=== PATIENT | female | born 1975 | race Two or more races ===

== ENCOUNTER 2024-10-09 14:42 | Outpatient (AMB) | payer MEDICAID, SELFPAY ==
[2024-10-09 15:30] VITALS: BP 154/96; PULSE 87; RESP 18; TEMP 36.3; O2SAT 98; BMI 39.7
--- NOTE | 2024-10-09 15:30 | PD.ORTHCLVIS ---
Vital signs 10/09/24 15:30 Height 1.57 m Height Method Stated Weight 98.061 kg Weight Measurement Method Standing Scale BMI 39.7 BP 154/96 H Blood Pressure Source Automatic Cuff Blood Pressure Location Left Upper Arm Position Sitting Respiration 18 Pulse 87 Pulse Source Monitor Temp 97.3 F Temp Source Temporal Artery Scan Pulse Oximetry (%) 98 Oxygen Delivery Method Room Air Med/Allergies Allergies & Medications Allergies No Known Drug Allergies Allergy (Verified 10/09/24 15:31) Medication Reconciliation ibuprofen 800 mg tablet 800 mg PO Q8H 01/21/24 [History Confirmed 10/09/24] acetaminophen 500 mg tablet (Acetaminophen Extra Strength) 1,000 mg (2 x 500 mg) PO Q6H PRN pain #90 tabs 04/01/24 [Rx Confirmed 10/09/24] aspirin 81 mg tablet,delayed release 81 mg PO BID #60 tabs 04/01/24 [Rx Confirmed 10/09/24] doxycycline hyclate 100 mg tablet 100 mg PO BID #14 tabs 04/01/24 [Rx Confirmed 10/09/24] meloxicam 7.5 mg tablet 7.5 mg PO QDAY #30 tabs 04/01/24 [Rx Confirmed 10/09/24] oxycodone 5 mg tablet 5 mg PO Q6H PRN pain #28 tabs 04/01/24 [Rx Confirmed 10/09/24] pregabalin 75 mg capsule 75 mg PO BID #45 caps 04/01/24 [Rx Confirmed 10/09/24] sennosides 8.6 mg-docusate sodium 50 mg tablet (Senna-S) 1 tab-cap PO QDAY #30 tabs 04/01/24 [Rx Confirmed 10/09/24] meloxicam 7.5 mg tablet 7.5 mg PO QDAY #45 tabs 05/05/24 [Rx Confirmed 10/09/24] sulfamethoxazole 800 mg-trimethoprim 160 mg tablet (Bactrim DS) 1 tab PO BID #14 tabs 05/07/24 [Rx Confirmed 10/09/24] Exam Exam Patient is in no acute distress and is cooperative with the examination today. Breathing is nonlabored. Patient has a normal mood and affect. Bilateral extremities were evaluated and demonstrates sensation intact to light touch. Palpable pedal pulses are present. No significant edema is present. Bilateral hips were examined. The patient has no pain with log roll of the hips. Internal rotation to 30 degrees and external rotation to 30 degrees is painless. Negative FADIR. Left knee was examined today. The left knee is in reasonable alignment. Range of motion from 0-120 degrees. Knee is stable to varus and valgus as well as AP translation with <5mm. Patient has a negative McMurrays. There is no pain with patellofemoral compression and no crepitus noted. The knee is Tender to palpation a new R knee incision is clean, dry, and intact. ROM 0-110 degrees Assessment and Plan Problem List (1) Pain: (2) Arthritis of knee, right: Status: Acute Plan: Patient is doing well s/p R TKA. She is doing well. She has left knee arthritis and would like an injection today. Recommend knee cortisone injection as patient would like to proceed with conservative treatment at this time. The risks and benefits of the procedure were reviewed with the patient and patient gave verbal consent to continue with the procedure. Procedure: performed by Dr. Lea Using sterile technique the left knee was thoroughly prepped with alcohol, and approximately 1 cc of Kenalog 40 mg/mL and 4 cc of 1% lidocaine was injected without resistance into the medial tibial femoral joint space. The patient tolerated the procedure. (3) Arthritis of left knee: Status: Acute Office Procedures GNS Level of Care Nursing/Assessment Patient Status: Established Patient Nursing Assessment/Reassesment: Medication Reconciliation, Update PMH in EMR and Vital Signs Coordination of Care: Complex Care and Chronic Disease 1-5, Education Complex Pt/Fam, Consent,records obtained, informed consent, Results/Orders obtained and Staff clarify orders Established Patient Charge Established Patient Point Assignment: 95 Established Patient Point Charge: EP Level 3 (80-115) Surgical Proc/IM SQ injection Major Surgical Procedure: Yes (KNEE INJECTION) Medication Given Medication Given Medication Given: Yes Documented Dose Given: 4 Route: Infiitration Medication Given Medication Given Medication Given: Yes Documented Dose Given: 1 Route: Infiitration Office Meds Xylocaine 10 mg/mL (1 %) injection solution Performing Provider: Ralf Lea MD Performing Location: [facility] Administered by: Ralf Lea MD on 10/09/24 16:09 Dose Route Admin Location Dispensed Lot Number Expiration Date [facility] Rotating Equipment Engineer 20 mL Infiltration 20 mL [id number] [facility]one acetonide 40 mg/mL suspension for injection Performing Provider: Ralf Lea MD Performing Location: [facility] Administered by: Ralf Lea MD on 10/09/24 16:09 Dose Route Admin Location Dispensed Lot Number Expiration Date [employer] 40 mg intra-articular KNEE INJECTION 1 mL [id number] 01/21/26 2996-7082-65 [employer] Questionairres Past Medical History Past Medical History Have you ever been diagnosed with any of the following: Neurological Problems Seizures: No Cardiology Problems Congestive Heart Failure: No Hypertension: Yes (was prescrived amlodipine but stated makes her sick, not taking it) Respiratory Problems Chronic Obstructive Pulmonary Disease (COPD): No Pneumonia: Yes Smoking: Yes (CANNABIS) Smoking Cessation Counseling: No Smoking Exposure: Yes Tobacco Use: No Stomache/Intestinal Problems Obesity: Yes Genital/Urinary Problems Renal Disease: No Reproductive Problems Previous Pregnancies: Yes (3) Musculoskeletal Problems Rheumatoid Arthritis: Yes (states was diagnosed but no meds) Endocrine Problems Diabetes Mellitus Type 1: No Diabetes Mellitus Type 2: No Other Problems Hospitalization: Yes (surgery) Shingles: No Blood Transfusions: No Blood Transfusion Reaction: No Anesthesia Reactions: No Cancer: No Surgical History Total Knee Replacement: Yes Subjective Immunization / Flu Flu Vaccine in the Last 12 Months: Yes Flu Vaccine Exclusion Criteria: Already Received History of Present Illness Chief complaint: Right total knee replacement Patient is doing well status post right total knee replacement. The left knee hurts more. Pain is medial. She has not had an injection for a while. She like to try injection on the left. The pain is starting to affect her quality life and happiness Review of Systems Review of Systems: All systems negative unless otherwise noted in HPI.
--- NOTE | 2024-10-09 15:30 | PD.ORTHCLVIS ---
Vital signs 10/09/24 15:30 Height 1.57 m Height Method Stated Weight 98.061 kg Weight Measurement Method Standing Scale BMI 39.7 BP 154/96 H Blood Pressure Source Automatic Cuff Blood Pressure Location Left Upper Arm Position Sitting Respiration 18 Pulse 87 Pulse Source Monitor Temp 97.3 F Temp Source Temporal Artery Scan Pulse Oximetry (%) 98 Oxygen Delivery Method Room Air Med/Allergies Allergies & Medications Allergies No Known Drug Allergies Allergy (Verified 10/09/24 15:31) Medication Reconciliation ibuprofen 800 mg tablet 800 mg PO Q8H 01/21/24 [History Confirmed 10/09/24] acetaminophen 500 mg tablet (Acetaminophen Extra Strength) 1,000 mg (2 x 500 mg) PO Q6H PRN pain #90 tabs 04/01/24 [Rx Confirmed 10/09/24] aspirin 81 mg tablet,delayed release 81 mg PO BID #60 tabs 04/01/24 [Rx Confirmed 10/09/24] doxycycline hyclate 100 mg tablet 100 mg PO BID #14 tabs 04/01/24 [Rx Confirmed 10/09/24] meloxicam 7.5 mg tablet 7.5 mg PO QDAY #30 tabs 04/01/24 [Rx Confirmed 10/09/24] oxycodone 5 mg tablet 5 mg PO Q6H PRN pain #28 tabs 04/01/24 [Rx Confirmed 10/09/24] pregabalin 75 mg capsule 75 mg PO BID #45 caps 04/01/24 [Rx Confirmed 10/09/24] sennosides 8.6 mg-docusate sodium 50 mg tablet (Senna-S) 1 tab-cap PO QDAY #30 tabs 04/01/24 [Rx Confirmed 10/09/24] meloxicam 7.5 mg tablet 7.5 mg PO QDAY #45 tabs 05/05/24 [Rx Confirmed 10/09/24] sulfamethoxazole 800 mg-trimethoprim 160 mg tablet (Bactrim DS) 1 tab PO BID #14 tabs 05/07/24 [Rx Confirmed 10/09/24] Exam Exam Patient is in no acute distress and is cooperative with the examination today. Breathing is nonlabored. Patient has a normal mood and affect. Bilateral extremities were evaluated and demonstrates sensation intact to light touch. Palpable pedal pulses are present. No significant edema is present. Bilateral hips were examined. The patient has no pain with log roll of the hips. Internal rotation to 30 degrees and external rotation to 30 degrees is painless. Negative FADIR. Left knee was examined today. The left knee is in reasonable alignment. Range of motion from 0-120 degrees. Knee is stable to varus and valgus as well as AP translation with <5mm. Patient has a negative McMurrays. There is no pain with patellofemoral compression and no crepitus noted. The knee is Tender to palpation a new R knee incision is clean, dry, and intact. ROM 0-110 degrees Assessment and Plan Problem List (1) Pain: (2) Arthritis of knee, right: Status: Acute Plan: Patient is doing well s/p R TKA. She is doing well. She has left knee arthritis and would like an injection today. Recommend knee cortisone injection as patient would like to proceed with conservative treatment at this time. The risks and benefits of the procedure were reviewed with the patient and patient gave verbal consent to continue with the procedure. Procedure: performed by Dr. Lea Using sterile technique the left knee was thoroughly prepped with alcohol, and approximately 1 cc of Kenalog 40 mg/mL and 4 cc of 1% lidocaine was injected without resistance into the medial tibial femoral joint space. The patient tolerated the procedure. (3) Arthritis of left knee: Status: Acute Office Procedures GNS Level of Care Nursing/Assessment Patient Status: Established Patient Nursing Assessment/Reassesment: Medication Reconciliation, Update PMH in EMR and Vital Signs Coordination of Care: Complex Care and Chronic Disease 1-5, Education Complex Pt/Fam, Consent,records obtained, informed consent, Results/Orders obtained and Staff clarify orders Established Patient Charge Established Patient Point Assignment: 95 Established Patient Point Charge: EP Level 3 (80-115) Surgical Proc/IM SQ injection Major Surgical Procedure: Yes (KNEE INJECTION) Medication Given Medication Given Medication Given: Yes Documented Dose Given: 4 Route: Infiitration Medication Given Medication Given Medication Given: Yes Documented Dose Given: 1 Route: Infiitration Office Meds Xylocaine 10 mg/mL (1 %) injection solution Performing Provider: Ralf Lea MD Performing Location: [facility] Administered by: Ralf Lea MD on 10/09/24 16:09 Dose Route Admin Location Dispensed Lot Number Expiration Date [facility] Search Strategist 20 mL Infiltration 20 mL [id number] [facility] tri[facility]cin[facility]one acetonide 40 mg/mL suspension for injection Performing Provider: Ralf Lea MD Performing Location: [facility] Administered by: Ralf Lea MD on 10/09/24 16:09 Dose Route Admin Location Dispensed Lot Number Expiration Date [facility] Search Strategist 40 mg intra-articular KNEE INJECTION 1 mL [id number] 01/21/26 7885-8199-53 TEV[employer] PARENTERAL MA Intake Visit Data Collection New Patient or Established: Established Patient (seen at [facility] within 3 years) Seen by Clinical Staff ONLY (RN/MA): No Director Report Required: No PCP or OBGYN visit in last 3 months: Yes Hx Now: No Do You Feel Safe at Home: Yes Authorities Contacted: N/A Questionairres Past Medical History Past Medical History Have you ever been diagnosed with any of the following: Neurological Problems Seizures: No Cardiology Problems Congestive Heart Failure: No Hypertension: Yes (was prescrived amlodipine but stated makes her sick, not taking it) Respiratory Problems Chronic Obstructive Pulmonary Disease (COPD): No Pneumonia: Yes Smoking: Yes (CANNABIS) Smoking Cessation Counseling: No Smoking Exposure: Yes Tobacco Use: No Stomache/Intestinal Problems Obesity: Yes Genital/Urinary Problems Renal Disease: No Reproductive Problems Previous Pregnancies: Yes (3) Musculoskeletal Problems Rheumatoid Arthritis: Yes (states was diagnosed but no meds) Endocrine Problems Diabetes Mellitus Type 1: No Diabetes Mellitus Type 2: No Other Problems Hospitalization: Yes (surgery) Shingles: No Blood Transfusions: No Blood Transfusion Reaction: No Anesthesia Reactions: No Cancer: No Surgical History Total Knee Replacement: Yes Subjective Visit Visit for: follow up visit and injections Immunization / Flu Flu Vaccine in the Last 12 Months: No Flu Vaccine Exclusion Criteria: No Exclusion Criteria History of Present Illness Chief complaint: Right total knee replacement Patient is doing well status post right total knee replacement. The left knee hurts more. The Pain is medial. She has not had an injection for a while. She like to try injection on the left. The pain is starting to affect her quality life and happiness Pain Pain level (0-10): 4 Pain duration: COMES AND GOES Pain location: inside (medial) Pain quality: sharp and aching Pain timing: increases with activity Associated signs & symptoms: stiffness Ambulatory data Ambulatory device: none Treatments Improvement with previous injections: No Improvement with PT: No Improvement with NSAIDS: no Review of Systems Review of Systems: All systems negative unless otherwise noted in HPI.
== END 2024-10-09 15:49 | disposition home or self-care (01) ==
LOC: HODSRG 14:42
PROVIDERS: PCP Family Medicine; Referring Provider Family Medicine; Supervising Provider Orthopaedic Surgery Adult Reconstructive Orthopaedic Surgery; Visit Provider Orthopaedic Surgery Adult Reconstructive Orthopaedic Surgery
DX: M17.0 Bilateral primary osteoarthritis of knee (principal); Z96.651 Presence of right artificial knee joint; R52 Pain, unspecified; I10 Essential (primary) hypertension
CPT/HCPCS: 20610; 99213; J3301; J3490; G0463

== ENCOUNTER 2024-10-23 22:56 | Emergency (ER) | payer MEDICAID, SELFPAY ==
[2024-10-23 22:57] VITALS: BMI 38.4
[2024-10-23 23:07] VITALS: BP 160/92; PULSE 96; RESP 20; TEMP 37; O2SAT 96
--- NOTE | 2024-10-23 23:28 | XR_ITS ---
Examination: PA chest single view, Upright PA chest single view Exam date and time: October 23, 2024 at 11:50 PM INDICATIONS: Coughing beginning one month ago. FINDINGS: Normal heart size. Lungs are clear. The osseous structures are intact IMPRESSION: No active disease
[2024-10-23] MEDS: DEXAMETHASONE SOD PHOS INJ 10 MG/ML VIAL PO (23:38)
[2024-10-23] MEDS: HYDROcodone/APAP 5/325 TABLET 1 TAB PO (23:38)
--- NOTE | 2024-10-23 23:40 | PD.EDURI ---
Upper Respiratory Inf. RME/HPI General Chief Complaint: Flu Like Symptoms Stated Complaint: FLU LIKE SYMPTOMS [id number] Time Seen by Provider: 10/23/24 23:28 Arrival date/time: 10/23/24 22:56 49F with no significant PMH presents to ED with 1 month of nasal congestion, cough, and sinus pressure. Limitations: no limitations Related Data Home Medications ?Medication ?Instructions ?Recorded ?Confirmed ibuprofen 800 mg tablet 800 mg PO Q8H 01/21/24 10/09/24 Previous Rx's ?Medication ?Instructions ?Recorded acetaminophen 500 mg tablet 1,000 mg (2 x 500 mg) PO Q6H PRN 04/01/24 (Acetaminophen Extra Strength) pain #90 tabs aspirin 81 mg tablet,delayed 81 mg PO BID #60 tabs 04/01/24 release doxycycline hyclate 100 mg tablet 100 mg PO BID #14 tabs 04/01/24 meloxicam 7.5 mg tablet 7.5 mg PO QDAY #30 tabs 04/01/24 oxycodone 5 mg tablet 5 mg PO Q6H PRN pain #28 tabs 04/01/24 pregabalin 75 mg capsule 75 mg PO BID #45 caps 04/01/24 sennosides 8.6 mg-docusate sodium 1 tab-cap PO QDAY #30 tabs 04/01/24 50 mg tablet (Senna-S) meloxicam 7.5 mg tablet 7.5 mg PO QDAY #45 tabs 05/05/24 sulfamethoxazole 800 1 tab PO BID #14 tabs 05/07/24 mg-trimethoprim 160 mg tablet (Bactrim DS) amoxicillin 875 mg-potassium 1 tab PO BID 7 days #14 tabs 10/23/24 clavulanate 125 mg tablet prednisone 20 mg tablet 20 mg PO BID 4 days #8 tabs 10/23/24 Allergies Allergy/AdvReac Type Severity Reaction Status Date / Time No Known Drug Allergies Allergy Verified 10/09/24 15:31 Review of Systems Review of Systems Systems Reviewed: All systems reviewed, normal except as documented Constitutional Constitutional: Reports system reviewed and no additional complaints, except as documented, Denies fever(s) and Denies headache(s) ENT Ears, Nose, Mouth, and Throat: Reports as per HPI, Denies disequilibrium, Denies headache(s), Reports nasal congestion and Reports sinus pressure Cardiovascular Cardiovascular: Reports system reviewed and no additional complaints, except as documented, Denies chest pain and Denies dyspnea Respiratory Respiratory: Reports system reviewed and no additional complaints, except as documented, Reports as per HPI, Reports cough and Denies dyspnea Gastrointestinal Gastrointestinal: Reports system reviewed and no additional complaints, except as documented, Denies abdominal pain, Denies nausea and Denies vomiting Neurologic Neurologic: Reports system reviewed and no additional complaints, except as documented, Denies confusion, Denies disequilibrium and Denies headache(s) Psychiatric Psychiatric: Denies confusion Past Medical History Past Medical History NEUROLOGIC: Negative Neurological Disorders or Seizures CARDIAC: Positive Cardiac Disorders and Hypertension (was prescrived amlodipine but stated makes her sick, not taking it); Negative Congestive Heart Failure RESPIRATORY: Positive Pneumonia, Smoking (CANNABIS) and Smoking Exposure; Negative Chronic Obstructive Pulmonary Disease (COPD), Smoking Cessation Counseling or Tobacco Use GASTROINTESTINAL: Positive Gastrointestinal Disorders and Obesity GENITOURINARY: Positive Genitourinary Disorders (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); Negative Renal Disease REPRODUCTIVE: Positive Previous Pregnancies (3) MUSCULOSKELETAL: Positive Musculoskeletal Disorders and Rheumatoid Arthritis (states was diagnosed but no meds) ENDOCRINE: Negative Endocrine Disorders, Diabetes Mellitus Type 1 or Diabetes Mellitus Type 2 HEMATOLOGIC: Negative Blood Disorders OTHER HISTORY: Positive Hospitalization (surgery); Negative Autoimmune Disease, Shingles, Blood Transfusions, Blood Transfusion Reaction, Anesthesia Reactions or Cancer Family History FAMILY HISTORY: Negative Family Psychiatric Problems, Family Respiratory Disorders, Family Cardiac Disorders, Family Gastrointestinal Problems, Family Cancer, Family Surgery or Family Anesthesia Reaction Surgical History SURGICAL: Positive Tubal Ligation Social History SMOKING STATUS: Current every day smoker ED Exam General Limitations: Present no limitations General appearance: Present alert and in no apparent distress Head Head exam: Present atraumatic Eye Eye exam: Present normal appearance, PERRL and EOMI ENT ENT exam: Present mucous membranes moist Expanded ENT Exam Nose exam: Present sinus tenderness Neck Neck exam: Present normal inspection, full ROM and trachea midline Chest Chest inspection: Present normal inspection and symmetric chest wall rise Respiratory Respiratory exam: Present normal lung sounds bilaterally Cardiovascular Cardiovascular exam: Present regular rate, normal rhythm and normal heart sounds Abdominal Exam Abdominal exam: Present soft and normal bowel sounds Extremities Exam Extremities exam: Present normal inspection and full ROM Back Exam Back exam: Present normal inspection and full ROM Neurological Exam Neurological exam: Present alert, oriented X3 and CN II-XII intact Psychiatric Psychiatric exam: Present normal affect and normal mood Skin Skin exam: Present warm, dry, intact and normal color Course Quality Measures none Orders Category Date Time Status XR chest 1V portable Stat Exams 10/23/24 23:28 Completed Amoxicillin/Pot Clav 875 [Augmentin 875] Med 10/23/24 23:57 Discontinued 1 tab PO X1 ONE Dexamethasone Inj [Decadron Inj] Med 10/23/24 23:28 Discontinued 10 mg PO X1 ONE HYDROcodone*/APAP 5/325 [Corinth 5/325] Med 10/23/24 23:28 Discontinued 1 tab PO X1 ONE Vital Signs Vital signs: Vital Signs Temperature 98.6 F 10/23/24 23:07 Pulse Rate 96 10/23/24 23:07 Respiratory Rate 20 10/23/24 23:07 Blood Pressure 160/92 H 10/23/24 23:07 Pulse Oximetry (%) 96 10/23/24 23:07 Oxygen Delivery Method Room Air 10/23/24 23:07 O2 at 96% on RA and WNLs Upper Respiratory Infection MDM Narrative MDM Narrative:: 49F with no significant PMH presents to ED with 1 month of nasal congestion, cough, and sinus pressure. Physical exam reveals sinus tenderness and nasal congestion, but clear lungs. Patient is afebrile, calm, and alert. CXR normal. Likely sinusitis. Patient data External records reviewed:: [facility] previous records Clinical information provided by:: patient Social determinants that could affect healthcare access:: none Patient has the following chronic illnesses:: none How is presenting disease/condition affected by chronic disease/condition?: no chronic disease Evaluation data The following diagnostics were reviewed and interpreted by me:: radiology exam(s) Lab and/or radiology exams considered but not ordered:: ordered Interpretation Summary: above Medications / Prescriptions Medications or Prescriptions considered but not ordered:: ordered Medication administrations:: Medication Administration History Discontinued Medications Hydrocodone Bitart/Acetaminophen (Hydrocodone/Apap 5/325 Tablet) 1 tab PO X1 ONE Stop: 10/23/24 23:29 Last Admin: 10/23/24 23:38 Dose: 1 tab Documented By: OA Amoxicillin/Clavulanate Potassium (Amoxicillin/Pot Clav 875 Tablet) 1 tab PO X1 ONE Stop: 10/23/24 23:58 Dexamethasone Sodium Phosphate (Dexamethasone Sod Phos Inj 10 Mg/Ml Vial) 10 mg PO X1 ONE Stop: 10/23/24 23:29 Last Admin: 10/23/24 23:38 Dose: 10 mg Documented By: OA above Consultations Consultation(s) initiated? (list below): No Diagnosis Upper Respiratory Differential Diagnosis: upper respiratory infection, croup, otitis media, sinusitis, viral infection, bronchitis, influenza, pharyngitis and other (CAP) Most likely diagnosis given after review of the tests above:: sinusitis Admission Indicated Admission indicated?: not indicated Admission Request Was there a request for admission?: No Disposition Plan Disposition Plan: Discharge Discharge Attestation Discharge Attestation: The patient and all family members were given an opportunity to ask questions and understood the discharge instructions. Discharge instructions specifically effects, indications for sooner follow up or return to the emergency department, and the expected course of current diagnosis. Patient condition: Stable Discharge Plan Plan Patient Disposition: HOME (Self Care) Disposition Comment: Stable Prescriptions/Referrals Prescriptions/Med Rec: New amoxicillin-pot clavulanate 875-125 mg tablet 1 tab PO BID 7 Days Qty: 14 0RF prednisone 20 mg tablet 20 mg PO BID 4 Days Qty: 8 0RF No Action ibuprofen 800 mg tablet 800 mg PO Q8H meloxicam 7.5 mg tablet 7.5 mg PO QDAY Qty: 45 3RF sennosides-docusate sodium [Senna-S] 8.6-50 mg tablet 1 tab-cap PO QDAY Qty: 30 0RF aspirin 81 mg tablet,delayed release (DR/EC) 81 mg PO BID Qty: 60 0RF acetaminophen [Acetaminophen Extra Strength] 500 mg tablet 1,000 mg PO Q6H MDD 1000mg PRN (Reason: pain) Qty: 90 0RF meloxicam 7.5 mg tablet 7.5 mg PO QDAY Qty: 30 0RF doxycycline hyclate 100 mg tablet 100 mg PO BID Qty: 14 0RF oxycodone 5 mg tablet 5 mg PO Q6H MDD 40 PRN (Reason: pain) Qty: 28 0RF pregabalin 75 mg capsule 75 mg PO BID Qty: 45 0RF sulfamethoxazole-trimethoprim [Bactrim DS] 800-160 mg tablet 1 tab PO BID Qty: 14 0RF Problem List Clinical Impression: Sinusitis Patient/Caregiver Discharge Instructions Education Materials: ED Sinusitis (Antibiotic Treatment) Additional Instructions: Please follow-up with PCP within 24-48 hours and return immediately if symptoms worsen. Print Language: [place] Island[place] Stand Alone Forms: Patient Portal Info Letter PA/POT RUNNER Supervising Physician PA/POT RUNNER Supervising Physician: Dr. Gaitan
[2024-10-24] MEDS: AMOXICILLIN/POT CLAV 875 TABLET 1 TAB PO (00:05)
== END 2024-10-24 00:06 | disposition home or self-care (01) ==
PROVIDERS: Emergency Provider Emergency Medicine; PCP Family Medicine
DX: J32.9 Chronic sinusitis, unspecified (principal)
CPT/HCPCS: 71045; 99283; J1100; A9270